=== PATIENT | female | born 1930 | race Caucasian/White ===

== ENCOUNTER 2018-05-20 14:17 | Emergency (ER) | payer MEDICARE, BC ==
[2018-05-20] MEDS ORDERED: HYDROCODONE/APAP 5/325MG TABLET PO ONE (14:33)
--- NOTE | 2018-05-20 14:37 | Emergency Department Record ---
History of Present Illness - General Chief Complaint: Fall Injury Stated Complaint: FALL/CHEST PAIN Time Seen by Provider: 05/20/18 14:22 Source: Patient, Family Mode of Arrival: Wheelchair Limitations: No limitations - History of Present Illness Initial Comments: 88 yo female presents after a fall on Saturday. She was entering her apartment and tripped. She landed on her chest. Pain over the sternum has gradually increased since that time. No fever, chills, cough. She has pain with movement , palpation, and certain position changes. She has some pain in the bag as well at times. No other injuries. No extremity injuries. No abdominal pain or injury. The pain is most notable with movement or position changes. She did not hit her head. No syncope. No neck pain. MD Complaint: Fall Onset/Timin -: Days(s) Fall From: Standing When Fall Occurred: # Days [employer] Fall Witnessed: No Place Fall Occurred: Home Loss of Consciousness: None Prolonged Down Time?: No Symptoms Prior to Fall: Chest pain Severity: Severe Severity scale (1-10): 10 Quality: Aching Context: Tripped/slipped Associated Symptoms: Chest pain - Related Data Previous Rx's Medication Instructions Recorded Hydrocodone/Acetaminophen [[place] 1 each PO Q12H #6 tablet 05/20/18 5-325 Tablet] Allergies Allergy/AdvReac Type Severity Reaction Status Date / Time phenytoin sodium Allergy PT UNSURE Unverified 09/12/17 15:52 [From Dilantin] OF REACTION phenytoin sodium extended Allergy PT UNSURE Unverified 09/12/17 15:52 [From Dilantin] OF REACTION Travel Screening - Travel/Exposure Within Last 30 Days Have you traveled within the last 30 days?: No Review of Systems Constitutional: Denies: Chills, Fever, Weakness Eyes: Denies: Eye discharge ENT: Denies: Congestion, Throat pain Respiratory: Denies: Cough, Dyspnea, Hemoptysis, Wheezes Cardiovascular: Reports: As per HPI, Chest pain (sternal, ribs). Denies: Dyspnea on exertion, Edema, Syncope Endocrine: Denies: Fatigue Gastrointestinal: Denies: Abdominal pain, Nausea, Vomiting Genitourinary: Denies: Dysuria Musculoskeletal: Reports: Back pain. Denies: Arthralgia, Joint swelling, Myalgia Skin: Denies: Bruising, Change in color, Rash Neurological: Denies: Abnormal gait, Confusion, Headache, Numbness, Vertigo, Weakness Psychiatric: Denies: Anxiety Hematological/Lymphatic: Denies: Easy bleeding, Easy bruising Past Medical History - SOCIAL HISTORY Smoking Status: Never smoker Alcohol Use: None Drug Use: None - RESPIRATORY Hx Respiratory Disorders: No - CARDIOVASCULAR Hx Cardio Disorders: No - NEURO Hx Neuro Disorders: Yes Hx CVA: Yes Comment:: Neuropathy-L leg, foot drop R - GI Hx GI Disorders: No - Hx Genitourinary Disorders: Yes Hx Bladder Problem: Yes - ENDOCRINE Hx Endocrine Disorders: No - MUSCULOSKELETAL Hx Musculoskeletal Disorders: No - PSYCH Hx Psych Problems: No - HEMATOLOGY/ONCOLOGY Hx Hematology/Oncology Disorders: No Family Medical History Any Significant Family History?: Yes Hx Cancer: Brother/Sister Physical Exam - General General Appearance: Alert, Oriented x3, Cooperative, No acute distress Limitations: No limitations - Head Head exam: Atraumatic, Normocephalic, Normal inspection Head exam detail: negative: Abrasion, Contusion, Hematoma - Eye Eye exam: Normal appearance, PERRL. negative: Conjunctival injection, Scleral icterus - ENT ENT exam: Normal exam, Mucous membranes moist Ear exam: Normal external inspection Nasal Exam: Normal inspection Mouth exam: Normal external inspection - Neck Neck exam: Normal inspection, Full ROM. negative: Tenderness - Respiratory Respiratory exam: Normal lung sounds bilaterally, Chest wall tenderness. negative: Accessory muscle use, Decreased breath sounds, Prolonged expiratory, Respiratory distress, Rhonchi, Stridor, Wheezes - Cardiovascular Cardiovascular Exam: Regular rate, Normal rhythm, Normal heart sounds Peripheral Pulses: 2+: Radial (R), Radial (L) - GI/Abdominal GI/Abdominal exam: Soft. negative: Distended, Guarding, Rigid, Tenderness - Rectal Rectal exam: Deferred - exam: Deferred - Extremities Extremities exam: Normal inspection, Full ROM, Normal capillary refill. negative: Calf tenderness, Joint swelling, Pedal edema, Tenderness Image of Full Body: 1 - tenderness to the sternum, no crepitus, tender along the ribs parasternal, no step off - Back Back exam: Reports: CVA tenderness (R), CVA tenderness (L), Full ROM. Denies: Paraspinal tenderness, Tenderness, Vertebral tenderness - Neurological Neurological exam: Alert, Normal gait, Oriented X3, Reflexes normal - Psychiatric Psychiatric exam: Normal affect, Normal mood. negative: Agitated, Anxious - Skin Skin exam: Dry, Intact, Normal color, Warm Course Vital Signs 05/20/18 14:18 Temperature 98.6 F Pulse Rate 70 Respiratory 19 Rate Blood Pressure 204/88 Pulse Ox 98 - Reevaluation(s) Reevaluation #1: EKG #1: 1420 Rate: 69 Rhythm: NSR [place]: Left Intervals: Normal, Incomplete LBBB ST segments: NS changes, LVH Prior: None on EMR The vitals were reviewed. No hypoxia or tachycardia. 05/20/18 15:[address] scan of the chest was negative for any acute changes. The patient tolerated the [place] We discussed the results, home care, follow up and reasons to return to the ED BP at DC was much improved. No hypoxia with the chest wall injury. Disposition Disposition: Discharge Clinical Impression: Chest wall contusion Qualifiers: Encounter type: initial encounter Laterality: unspecified laterality Qualified Code(s): S20.219A - Contusion of unspecified front wall of thorax, initial encounter Disposition: Home, Self-Care Condition: (1) Good Instructions: Fall Prevention for Older Adults (ED), Chest Wall Pain (ED) Additional Instructions: See your doctor this week to recheck you sternal pain from the fall Take stool softeners to prevent constipation if you take the pain medications Always have help with moving, walking or changes of position Prescriptions: Hydrocodone/Acetaminophen [[place] 5-325 Tablet] 1 each PO Q12H #6 tablet Forms: Patient Portal Access Time of Disposition: 15:46 Quality - Quality Measures Quality Measures: N/A, Blunt Head Trauma (>2yr) - [place] Coma Scale Eye Response: (4) Open spontaneously Motor Response: (6) Obeys commands Verbal Response: (5) Oriented [place] Total: 15 - Blunt Head Trauma - Adult Quality Measure: Measure #415: Utilization of CT for Minor Blunt Head Trauma ICD10 Codes Entered: Yes Was CT ordered: No Patient Presented Within 24 Hours of Injury: No Jamila Score: [address] for Minor Blunt Head Trauma: Not Eligible For Measure Additional Inclusion Criteria: More than 24hrs (OR) GCS not 15 (OR) CT not ordered. Not Eligible Reason: CT Not Ordered, Injury Greater Than 24 Hours Ago - Blood Pressure Screening Does Patient Have Any of the Following: Active Dx of HTN Blood Pressure Classification: Hypertensive Reading Systolic Measurement: 154 Diastolic Measurement: 76 Screening for High Blood Pressure: Patient Exclusion, Hx of HTN [[id number]]
--- NOTE | 2018-05-21 11:01 | CT SCAN REPORT ---
EXAM: CT OF THE CHEST WITHOUT CONTRAST HISTORY: RIGHT SIDED CHEST PAIN. TECHNIQUE: CT of the chest was performed without IV contrast. This limits evaluation of the mediastinum and hilum. Comparison: Chest x-ray 01/16/18. FINDINGS: Atheromatous change and ectasia of the thoracic aorta. Cardiomegaly. Limited evaluation of the upper abdomen shows a large amount of stool in the colon. There is an 11 x 11 mm nonspecific left adrenal nodule, likely adenoma. The osseous structures of the thorax demonstrate no CT evidence for acute osseous abnormality. No pneumothorax. Biapical scarring. Moderate respiratory motion artifact. Scarring in the lung bases bilaterally. No effusion. IMPRESSION: NEGATIVE FOR AN ACUTE INTRATHORACIC PROCESS. INCIDENTAL FINDINGS ABOVE. JOB NUMBER: [id number] MTDD
== END 2018-05-20 16:08 | disposition home or self-care (01) ==
LOC: ER 14:17
DX: S20.219A Contusion of unspecified front wall of thorax, initial encounter (principal); I10 Essential (primary) hypertension; W01.198A Fall on same level from slipping, tripping and stumbling with subsequent striking against other object, initial encounter; Y93.89 Activity, other specified; Y92.039 Unspecified place in apartment as the place of occurrence of the external cause
CPT/HCPCS: 71250; 93005; 93010; 99284